=== PATIENT | male | born 2000 | race Two or more races ===

== ENCOUNTER → 2020-07-03 | Outpatient (CLI) | payer OTHER | END | disposition home or self-care (01) | LOC: PPH VACUNA → EDSEX → EDBD → PPH VACUNA 07-14 10:20 | DX: Z23 Encounter for immunization (principal) ==

== ENCOUNTER 2020-08-02 08:00 | Outpatient (CLI) | payer OTHER | END 2020-08-02 08:30 | disposition home or self-care (01) | LOC: PPH VACUNA 08:00 | DX: Z23 Encounter for immunization (principal) ==